=== PATIENT | male | born 1970 | race Native Hawaiian/Other Pacific Islander ===

== ENCOUNTER 2016-08-19 13:12 | Outpatient (CLI) | payer OTHER ==
[~2016-08-19 13:12] MED LIST: ALBUAER5 INH; ALBUTEROL0.083 % IN; BENICAR HCT1 TA2 PO; BUMETANIDE2 MG OR; CITALOPRAM40 MG OR; CLONIDINE0.2 MG OR; HYDR-2748 PO; K-TABS10 MEQ OR; KETOROLAC15 MG/ML IJ; LYRICA75 MG OR; METO2.5T3 PO; OMEPRAZOLE20 M1 OR; OXYC5TAB53 PO; ZIAC PO; ZOLP10TA2 PO
[2016-08-19 13:30] LABS: PLATELET COUNT 167 K/uL (142-355)
[2016-08-19 14:33] LABS: POTASSIUM 3.3 mmol/L (3.6-5.2); SODIUM 138 mmol/L (136-145)
== END 2016-08-19 16:00 | disposition home or self-care (01) ==
LOC: LAB 13:12
PROVIDERS: Nurse Practitioner Family
DX: I10 Essential (primary) hypertension (principal); E11.9 Type 2 diabetes mellitus without complications; I50.9 Heart failure, unspecified; I48.91 Unspecified atrial fibrillation; K21.9 Gastro-esophageal reflux disease without esophagitis; F41.8 Other specified anxiety disorders; R53.83 Other fatigue; R53.81 Other malaise; E53.8 Deficiency of other specified B group vitamins; G47.09 Other insomnia
CPT/HCPCS: 80053; 80061; 82607; 83036; 84154; 84436; 84443; 85027